=== PATIENT | male | born 1985 | race Caucasian/White ===

== ENCOUNTER 2016-07-27 06:24 | Emergency (ER) | payer SELFPAY ==
[~2016-07-27] VITALS: Ht 175.3 cm; Wt 72.0 kg
[~2016-07-27 06:24] MED LIST: IBUP800T23 PO
[2016-07-27 06:26] VITALS: BP 142/87; PULSE 96; RESP 15; TEMP 98.6; O2SAT 98
[2016-07-27] MEDS ORDERED: IBUP-232 PO (06:48)
--- NOTE | 2016-07-27 06:52 | PD ---
HPI Chief Complaint: Cold / Flu Symptoms Time Seen by Provider: 06:48 Travel History International Travel<30 days: No Contact w/Intl Traveler<30days: No Traveled to known affect area: No History of Present Illness HPI 30-year-old white male presents to emergency Department with complaints of headache, runny nose, cough congestion for the past day. He states that he is in drug court and was advised to come to the ER for treatment. He denies any shortness of breath or wheezing. He does smoke occasionally. He denies alcohol and drugs. He states that he's been sober. He was just recently released from [facility] one week ago was mandated to drug court. PFSH Past Medical History Arthritis: Yes (BILATERAL LEGS) Asthma: Yes Autoimmune Disease: No Blood Disorders: No Anxiety: Yes Depression: Yes Heart Rhythm Problems: No Cancer: No Cardiovascular Problems: No High Cholesterol: Yes Chemotherapy: No Chest Pain: Yes Congestive Heart Failure: No COPD: No Cerebrovascular Accident: No Diabetes: No Diminished Hearing: No Endocrine: No Gastrointestinal Disorders: No GERD: Yes Genitourinary: No Headaches: Yes Hiatal Hernia: Yes Hypertension: Yes Immune Disorder: No Implanted Vascular Access Dvce: Yes (DENIES) Kidney Stones: No Musculoskeletal: No Neurologic: No Psychiatric: Yes (anxiety) Reproductive: No Respiratory: Yes (asthma) Migraines: Yes Radiation Therapy: No Renal Failure: No Seizures: No Sickle Cell Disease: No Sleep Apnea: No Thyroid Disease: No Ulcer: Yes Past Surgical History Abdominal Surgery: Yes (ABSCESS) Body Medical Devices: plate in LEFT leg Other Surgery: Yes (RT FOOT AND LEFT LEG SURGERY/BIOPSY TO STERNUM) Social History Alcohol Use: No Tobacco Use: Yes Substance Use: No Allergies-Medications (Allergen,Severity, Reaction): Coded Allergies: *MDRO Multi-Drug Resistant Organism (Verified Adverse Reaction, Unknown, ) MRSA Reported Meds & Prescriptions Reported Meds & Active Scripts Active No Active Prescriptions or Reported Medications Review of Systems Except as stated in HPI: all other systems reviewed are Neg Physical Exam Narrative GENERAL: Well-developed, well-nourished in no acute distress. Nontoxic appearing. HEAD: Normocephalic, atraumatic. EYES: Pupils equal round and reactive. Extraocular motions intact. No scleral icterus. No injection or drainage. ENT: TMs clear without erythema. The external auditory canals clear. Nose: clear . Posterior pharynx is pink and moist. No tonsillar edema or exudate. Uvula midline. Airway patent. NECK: Trachea midline.Supple, nontender, moves head freely. No central bony tenderness or spasm. CARDIOVASCULAR: Regular rate and rhythm without murmurs, gallops, or rubs. RESPIRATORY: Clear to auscultation. Breath sounds equal bilaterally. No wheezes , rales, or rhonchi. GASTROINTESTINAL: Abdomen soft, non-tender, nondistended. No hepato-splenomegaly , or palpable masses. No guarding. EXTREMITIES: No clubbing, cyanosis, or edema. No joint tenderness, effusion, or edema noted. BACK: Nontender without deformity or crepitance. No flank tenderness. Skin: Patient has a scaly dermatitis to the nasal folds, eyebrows and forehead. This is consistent with seborrhea Data Data Last Documented VS Vital Signs Date Time Temp Pulse Resp B/P Pulse Ox O2 Delivery O2 Flow Rate FiO2 07/27/16 06:26 98.6 96 15 142/87 98 Room Air [facility] Medical Decision Making Medical Screen Exam Complete: Yes Emergency Medical Condition: Yes Medical Record Reviewed: Yes Differential Diagnosis MDM: High Differential diagnoses: Pneumonia, bronchitis, URI, asthma, influenza Narrative Course This is URI, seborrhea Diagnosis Primary Impression: URI (upper respiratory infection) Qualified Code: J06.9 - Viral upper respiratory tract infection Additional Impression: Dermatitis, seborrheic Patient Instructions: General Instructions Additional Instructions: Rest. Increase fluids. 600 mg of ibuprofen every 6 hours as needed for fever, pain, headache. May use [id number] Lamisil 2 your face twice daily for your rash. Follow-up with a medical doctor in one week. Med/Other Pt SpecificInfo: Prescription(s) given Scripts Ibuprofen 600 Mg [id number] Mg PO Q6H PRN (FEVER) #40 TAB Prov:Leela Lucas MD 07/27/16 Disposition: 01 DISCHARGE HOME Condition: Stable Jorge Uriostegui Jul 27, 2016 06:52
== END 2016-07-27 06:53 | disposition home or self-care (01) ==
LOC: NEPB 06:24
DX: J06.9 Acute upper respiratory infection, unspecified (principal); L21.9 Seborrheic dermatitis, unspecified; I10 Essential (primary) hypertension; Z72.0 Tobacco use
CPT/HCPCS: 99283

== ENCOUNTER 2017-03-21 08:56 | Emergency (ER) | payer SELFPAY ==
[~2017-03-21] VITALS: Ht 170.2 cm; Wt 70.0 kg
[~2017-03-21 08:56] MED LIST changes: +IBUP-232 PO; -IBUP800T23 PO
[2017-03-21 08:58] VITALS: BP 123/86; PULSE 90; RESP 20; TEMP 97.7; O2SAT 97
[2017-03-21] MEDS ORDERED: ALUMINUM/MAGNESIUM/SIMETH 30 ML CUP PO ONE (09:15)
[2017-03-21] MEDS ORDERED: LIDOCAINE VISCOUS 2% SOLN 15 ML UDC PO ONE (09:15)
[2017-03-21] MEDS ORDERED: FAMOTIDINE 20 MG TAB PO ONE (09:15)
[2017-03-21 10:10] LABS: AUTOMATED NEUTROPHIL # 5.3 TH/MM3 (1.8-7.7); BASOPHIL % 0.5 % (0.0-2.0); EOSINOPHIL # 0.1 TH/MM3 (0-0.4); EOSINOPHIL % 1.4 % (0.0-4.0); HEMATOCRIT 47.8 % (39.0-51.0); HEMO FLAGS DIFF FINAL; LYMPH % 23.3 % (9.0-44.0); LYMPHOCYTE # 1.9 TH/MM3 (1.0-4.8); MEAN CELL VOLUME 89.2 FL (80.0-100.0); MEAN CORPUSCULAR HEMOGLOBIN 30.8 PG (27.0-34.0); MEAN CORPUSCULAR HGB CONC 34.5 % (32.0-36.0); MONO % 11.5 % (0.0-8.0); NEUT % 63.3 % (16.0-70.0); PLATELET COUNT 241 TH/MM3 (150-450); RED BLOOD COUNT 5.36 MIL/MM3 (4.50-5.90); RED CELL DISTRIBUTION WIDTH 13.4 % (11.6-17.2); WHITE BLOOD COUNT 8.3 TH/MM3 (4.0-11.0)
[2017-03-21 10:13] LABS: ALT (GPT) 144 U/L (12-78); ANION GAP 7 MEQ/L (5-15); AST (GOT) 63 U/L (15-37); BICARBONATE 30.3 MEQ/L (21.0-32.0); BLOOD UREA NITROGEN 9 MG/DL (7-18); CHLORIDE 103 MEQ/L (98-107); GLOMERULAR FILTRATION RATE 90 ML/MIN (>89); POTASSIUM 4.2 MEQ/L (3.5-5.1); SODIUM (NA) 140 MEQ/L (136-145)
[2017-03-21 10:15] LABS: ALKALINE PHOSPHATASE 57 U/L (45-117); TOTAL BILIRUBIN ADULT 0.9 MG/DL (0.2-1.0)
--- NOTE | 2017-03-21 11:24 | PD ---
HPI Chief Complaint: Abdominal Pain Time Seen by Provider: 09:08 Travel History International Travel<30 days: No Contact w/Intl Traveler<30days: No Traveled to known affect area: No History of Present Illness HPI So 31-year-old man presents to the emergency department complaining of severe stomach pains, with some sickness and vomiting with first started. No vomiting now. Pain is been worsening. He does have some occasional reflux. He uses NSAIDs occasional. Rare alcohol. Rare tobacco. No change in his bowel movements. History Past Medical History Medical History: Denies Significant Hx Tetanus Vaccination: > 5 Years Influenza Vaccination: No Social History Alcohol Use: No Tobacco Use: No (PT QUIT) Allergies-Medications (Allergen,Severity, Reaction): Coded Allergies: *MDRO Multi-Drug Resistant Organism (Verified Adverse Reaction, Unknown, ) MRSA Reported Meds & Prescriptions Reported Meds & Active Scripts Active No Active Prescriptions or Reported Medications Review of Systems Except as stated in HPI: all other systems reviewed are Neg Physical Exam Narrative GENERAL: Well-appearing 31-year-old man, no acute distress. SKIN: Focused skin assessment warm/dry. HEAD: Atraumatic. Normocephalic. CARDIOVASCULAR: Regular rate and rhythm. No murmur appreciated. RESPIRATORY: No accessory muscle use. Clear to auscultation. Breath sounds equal bilaterally. GASTROINTESTINAL: Abdomen soft, non-tender, nondistended. Hepatic and splenic margins not palpable. MUSCULOSKELETAL: No obvious deformities. No edema. NEUROLOGICAL: Awake and alert. No obvious cranial nerve deficits. Motor grossly within normal limits. Normal speech. PSYCHIATRIC: Appropriate mood and affect; insight and judgment normal. Data Data Last Documented VS Vital Signs Date Time Temp Pulse Resp B/P (MAP) Pulse Ox O2 Delivery O2 Flow Rate FiO2 03/21/17 10:24 03/21/17 09:05 16 03/21/17 08:58 97.7 90 97 Room Air Orders Orders Complete Blood Count With Diff (03/21/17 09:12) Comprehensive Metabolic Panel (03/21/17 09:12) Lipase (03/21/17 09:12) Al-Mag Hy-Si 40-40-4 Mg/Ml Liq (Mag-Al P (03/21/17 09:15) Lidocaine 2% Viscous (Xylocaine 2% Visco (03/21/17 09:15) Famotidine (Pepcid) (03/21/17 09:15) Labs Laboratory Tests Test 03/21/17 08:29 White Blood Count 8.3 TH/MM3 Red Blood Count 5.36 MIL/MM3 Hemoglobin 16.5 GM/DL Hematocrit 47.8 % Mean Corpuscular Volume 89.2 FL Mean Corpuscular Hemoglobin 30.8 PG Mean Corpuscular Hemoglobin Concent 34.5 % Red Cell Distribution Width 13.4 % Platelet Count 241 TH/MM3 Mean Platelet Volume 9.0 FL Neutrophils (%) (Auto) 63.3 % Lymphocytes (%) (Auto) 23.3 % Monocytes (%) (Auto) 11.5 % Eosinophils (%) (Auto) 1.4 % Basophils (%) (Auto) 0.5 % Neutrophils # (Auto) 5.3 TH/MM3 Lymphocytes # (Auto) 1.9 TH/MM3 Monocytes # (Auto) 1.0 TH/MM3 Eosinophils # (Auto) 0.1 TH/MM3 Basophils # (Auto) 0.0 TH/MM3 CBC Comment DIFF FINAL Differential Comment Blood Urea Nitrogen 9 MG/DL Creatinine 0.98 MG/DL Random Glucose 82 MG/DL Total Protein 8.1 GM/DL Albumin 3.7 GM/DL Calcium Level 9.2 MG/DL Alkaline Phosphatase 57 U/L Aspartate Amino Transf (AST/SGOT) 63 U/L Alanine Aminotransferase (ALT/SGPT) 144 U/L Total Bilirubin 0.9 MG/DL Sodium Level 140 MEQ/L Potassium Level 4.2 MEQ/L Chloride Level 103 MEQ/L Carbon Dioxide Level 30.3 MEQ/L Anion Gap 7 MEQ/L Estimat Glomerular Filtration Rate 90 ML/MIN Lipase 144 U/L [facility] Medical Decision Making Medical Screen Exam Complete: Yes Emergency Medical Condition: Yes Interpretation(s) LABS: CBC is unremarkable CMP with mildly increased AST ALT Lipase unremarkable Differential Diagnosis GERD, reflux, gastritis, hepatobiliary disease, pancreatitis, other Narrative Course Medical decision making 31-year-old man presents emergent from epigastric abdominal pain likely gastritis. Mild elevation of his AST and ALT of unclear etiology. They've been elevated in the past and actually improved from previous 2014. Patient eloped prior to labs resolving. Patient Instructions: General Instructions Departure Forms: Tests/Procedures Scripts No Active Prescriptions or Reported Meds Disposition: 07 AGAINST MEDICAL ADVICE Rangel Sawant MD Mar 21, 2017 11:24
== END 2017-03-21 10:24 | disposition left against medical advice (07) ==
LOC: NEPD 08:56
DX: R10.13 Epigastric pain (principal); R11.10 Vomiting, unspecified; K21.9 Gastro-esophageal reflux disease without esophagitis
CPT/HCPCS: 80053; 83690; 85025; 99283